=== PATIENT | male | born 1960 | race Caucasian/White ===

== ENCOUNTER → 2023-06-26 14:17 | Outpatient (REF) | payer BC, SELFPAY ==
[2023-06-26 14:54] LABS: % Basophils 0.4 % (0-2); % Immature Granulocytes 0.4 % (0-0.5); % Lymphocytes 45.7 % (20.5-51.1); % Monocytes 5.4 % (1.7-9.3); % Neutrophils 47.1 % (42.2-75.2); Absolute Basophils 0.1 10^3/uL (0-0.2); Absolute Eosinophils 0.1 10^3/uL (0-0.7); Absolute Immature Granulocytes 0.1 10^3/uL (0-0.05); Absolute Lymphocytes 5.1 10^3/uL (1.2-3.4); Absolute Monocytes 0.6 10^3/uL (0.1-0.6); Absolute Neutrophils 5.3 10^3/uL (1.4-6.5); Hematocrit 48.5 % (39.0-52.0); Hemoglobin 17.3 g/dL (13.0-18.0); Mean Corp Hgb Conc. 35.7 g/dL (33.0-37.0); Mean Corpuscular Hgb 33.1 pg (27.0-31.0); Mean Corpuscular Volume 92.7 fL (80.0-94.0); Mean Platelet Volume 11.3 fL (7.4-10.4); Nucleated Red Blood Cells % 0 % (-); Platelet Count 211 10^3/uL (130-400); Red Blood Cell Count 5.23 10^6/uL (4.70-6.10); Red Cell Dist. Width 12.4 % (11.5-14.5); White Blood Cell Count 11.2 10^3/uL (4.8-10.8)
[2023-06-26 15:07] LABS: ALT (SGPT) 31 U/L (0-50); AST (SGOT) 36 U/L (17-59); Albumin 4.5 g/dl (3.5-5.0); Alkaline Phosphatase 50 U/L (38-126); Blood Urea Nitrogen 15 mg/dl (9-20); Calcium 9.3 mg/dl (8.4-10.2); Carbon Dioxide 28 mmol/L (22-30); Chloride 102 mmol/L (98-107); Glucose 81 mg/dl (70-99); HDL Cholesterol 56 mg/dl; LDL Cholesterol, Calculated 104 mg/dl; Potassium 4.1 mmol/L (3.5-5.1); Sodium 135 mmol/L (135-145); Total Bilirubin 2.7 mg/dl (0.2-1.3); Total Cholesterol 171 mg/dl (50-199); Total Protein 7.1 g/dl (6.3-8.2); Triglyceride 56 mg/dl (10-149); Very Low Density Lipoprotein 11 mg/dl (0-30); eGFR > 60.00
[2023-06-26 15:38] LABS: TSH 0.62 uIU/ml (0.47-4.68)
== END ==
LOC: REG 14:17
PROVIDERS: ATTENDING PHYSICIAN Internal Medicine Cardiovascular Disease; FAMILY PHYSICIAN Family Medicine
DX: I25.119 Atherosclerotic heart disease of native coronary artery with unspecified angina pectoris (principal)
CPT/HCPCS: 36415; 80053; 80061; 84443; 85025

== ENCOUNTER 2023-07-04 04:39 | Inpatient (IN) | payer BC, SELFPAY ==
--- NOTE | 2023-07-04 04:10 | HPS.HSE ---
Addendum entered and electronically signed by Gilmar Portillo MD 07/04/23 14:12:
Correction:
Acute flexor tenosynovitis right 4th finger
HX similar tenosynovitis right 4th finger s/p suregry 1 yr ago in [place]
- Initiated IV Unasyn upon admission <del>Ancef</del> <del>1gm</del> <del>q8h</del>
- Analgesia PRN with Tylenol for mild pain, Oxycodone for mod - sevre pain
- f/u admission labs
- ER d/w hand Surgeon Dr ladd - consulted
Addendum entered and electronically signed by Gilmar Portillo MD 07/04/23 05:52:
Laboratory Tests
07/04/23
03:20
WBC 15.5 H
Plt Count 180
Sodium 137
Potassium 4.3
Carbon Dioxide 27
Creatinine 0.9
eGFR > 60.00
Original Note:
Family Physician
-
Family Physician: Wang Sanchez
Chief Complaint
-
Rt hand pain
History of Present Illness
62M [place] Res , dominant Rt hand, HX b/l carpel tunnel syndrome s/p CTS decompression surgery. HX Lt hand tenosynovitis pw acute onset of Rt hand pain and tenderness especially with opening of hand and extension more localized at base of the 4th
finger. Denied trauma. For last couple of months he is working on home [employer], [place].
ROS
No fever or chills
Medical History
Past Medical History
Past Medical History: Reports HTN, Hypercholesterolemia, Psychiatric (anxiety/depression ) and Other (b/l carpel tunnel syndrome )
Past Surgical History: Reports Orthopedic ( b/l carpel tunnel syndrome s/p CTS decompression surgery. Lt hand surgery )
Social History
Tobacco: Smoker
Alcohol: Occasional
Drug: Marijuana (occasionaly )
Personal:
Living: With Family
Family History
Family History: Not pertinent
Allergies / Home Medications
Allergies reflects when Allergies were last updated in [facility].
Home Medications with original date entered in [facility]
Allergy/Medication List:
No known allergy
Baby ASA 81 daily
Metoprolol succinate 50 mg daily
Rosuvastatin 10 mg qpm
Zoloft 25mg daily
Hormonal Tx ( Testosterone ? )
Review of Systems
-
Constitutional: Reports No Symptoms
EENT: Reports No Symptoms
Respiratory: Reports No Symptoms
Cardiac: Reports No Symptoms
Abdomen/GI: Reports No Symptoms
: Reports No Symptoms
Musculoskeletal: Reports See HPI
Skin: Reports No Symptoms
Neurological: Reports No Symptoms
Endocrine: Reports No Symptoms
Hematologic/Lymphatic: Reports No Symptoms
Psych: Reports No Symptoms
Physical Exam
Physical Exam
General: Well Developed, No Apparent Distress, Conversant and Other
HEENT: NormoCephalic, Anicteric and Moist mucous membranes
Respiratory: Clear; No Wheezes, Rales or Rhonchi
Cardiac: S1/S2 and Regular Rhythm; No Murmur
Breast: Deferred by me
GI: Soft, Non Tender, Non Distended and Normal Bowel Sounds
Rectal: Deferred by Provider
Genito-urinary: Deferred by me
Musculoskeletal: Other (severe tendeness to light palpation of Rt Hand at abse of the 4 th finger, painfull extension )
Skin: Warm
Neuro: AO x 3 and Nonfocal/grossly intact
Hematologic/Lymphatic: No Lymphadenopathy
Psych: Calm
Laboratory Results
-
pending admission labs
Impression/Plan
-
Data
WCC 11s a week ago per
Pending admission lab
A/P
Pending Rx reconciliation
Acute flexor tenosynovitis right 4th finger
HX similar tenosynovitis right 4th finger s/p suregry 1 yr ago in [place]
- IV Ancef 1gm q8h
- Analgesia PRN with Tylenol for mild pain, Oxycodone for mod - sevre pain
- f/u admission labs
- ER d/w hand Surgeon Dr ladd - consulted
HX HTN
HLD
CAD with stent
- cont all OP Meds
DVT Px: ambulatory
Full code
IP MS
--- NOTE | 2023-07-04 04:13 | ED.GENMED ---
History of Present Illness
General
Chief Complaint: Musculo-Skeletal Complaint
Source: patient and spouse
Exam Limitations: none
Nursing documentation reviewed up to this point in time: agreed with
History of Present Illness
History of Present Illness:
62-year-old male with past medical history as documented presents to the emergency room for evaluation of right fourth finger pain and swelling. Patient notably says that he had identical pain and swelling in the left hand last year and required
surgery for flexor tenosynovitis with Dr. Mendoza. He says that he noticed onset this evening and symptoms have been worsening throughout the night. He says pain is along the entire fourth digit on the flexor surface, finger is swollen and he says
that extension causes exquisite pain. He denies any trauma. He denies any other symptoms including fevers or chills.
Past History
Past History
ED Past Medical History: None
ED Past Surgical History: Orthopedic (CTR)
Social History
Tobacco: Non-smoker
Alcohol: Occasional
Drug: None
Personal:
Living: with family
Employment: Employed
Family History
Family History: CAD; Negative Early CAD or Sudden
Review of Systems
Review of Systems
All Other Systems: ROS reviewed and negative except as documented in HPI and ROS
Constitutional: Denies fever or chills
Respiratory: Denies trouble breathing
Cardiac: Denies chest pain
ABD/GI: Denies abdominal pain, nausea or vomiting
: Denies flank pain
Musculoskeletal: Reports other (Right hand/finger pain); Denies neck pain or back pain
Neurological: Denies headache, weakness or numbness
Phy Exam
Physical Exam
Physical Exam:
General: Awake, alert, oriented x3; no acute distress
Head: Normocephalic, atraumatic
Eyes: Conjunctiva normal, sclera anicteric
Throat: Airway intact, handling secretions
Neck: Trachea midline, supple without meningismus
Lungs: Breathing comfortably no distress
Heart: Regular rate
Neuro: No gross deficits
Skin: no rash
Extremities: On exam of patient's right hand he has some slight swelling over the left fourth digit, left fourth digit is held in flexion he has exquisite passive extension of the left fourth digit and tenderness to percussion along the flexor
tendon sheath; there is no significant erythema of the fourth digit; rest of the digits on the right hand unremarkable; exam of left hand no significant swelling or erythema; he has good pulses in all extremities including a strong right radial pulse
Scores
Heart Failure Risk
Heart Failure Risk Score: Not Applicable
Heart Score for Chest Pain Patients
STEMI patient?: Not applicable
Withdrawal Assessment of Alcohol
Withdrawal Assessment Completed?: Not applicable
Course
Orders/Labs/Results
Orders:
Orders
07/04/23 04:15
ORTHOPEDIC CONSULT Urgent
Consulting Provider: Manjit Farooq
Was physician already notified: Yes
07/04/23 04:16
Admit/Transfer Patient As Directed
Co-Sign Provider:
Level of Care: Inpatient admission
Assign to:: Medical/Surgical
Physician / Group: cookie
Diagnosis: Acute flexor tenosynovitis right 4th finger
Reason for Hospitalization: Acute flexor tenosynovitis right 4th finger
Expected length of stay greater than two midnights?: Yes
ELOS- Estimated Length of Stay in days: 3
I certify the patient meets the requirements for IP care: Yes
07/04/23 04:17
Code Status As Directed
Resuscitation Status: Full Code
MDM/Problems Addressed
Differential Diagnosis Includes:
Flexor tenosynovitis, fracture, sprain, dislocation/subluxation, cellulitis, tendinitis
MDM/Problems Addressed:
62-year-old male presents for evaluation of swelling and pain in the right fourth finger similar to prior episode of tenosynovitis in the left hand. Physical exam as above. He has multiple [place] signs at least mildly concerning for flexor
tenosynovitis. Will place an IV check lab work, x-ray of the hand. Discussed with hand surgeon will plan for IV antibiotics and admission and they will consult on patient.
Initial labs reviewed CBC shows leukocytosis to 15.6, CMP unremarkable. Discussed with hospitalist for admission.
*Radiology
Radiology exam reviewed: preliminary read by ED provider
*Pulse Oximetry
Patient hypoxic: no
*Critical Care Note
Total Time (30-74mins, 75-104mins- exclusive of procedures): Not Applicable
Data Reviewed
Review of Other/Old Records Reveals: Labs and Records
Source: patient and spouse
Patient Management
Discussion with other providers: Hospitalist (Discussed with hospitalist) and Interface Analyst (Discussed with hand surgeon)
Escalation/DeEscalation of care consider admission/obs:
Admission indicated
ED Attending Note
-
Portions of this chart may have been created with voice recognition software.� Occasional wrong word or��sound alike� substitutions may have occurred due to the inherent limitations of voice recognition software.
Discharge Plan
Departure
Patient Disposition: Admit
Date of Disposition: 07/04/23
Time of Disposition: 04:15
Admit to doctor: Cookie
Presentation/result/management discussed w/ accepting MD/DO: Hospitalist
Discharge Problem:
Tenosynovitis of finger and hand
Prescriptions:
No Action
aspirin [Aspir-Low] 81 MG tablet,delayed release (DR/EC)
81 mg PO DAILY
metoprolol succinate 50 MG tablet extended release 24 hr
50 mg PO DAILY Qty: 90 10RF
sertraline 50 mg Tablet
50 mg PO DAILY
rosuvastatin 10 MG tablet
20 mg PO QPM
amoxicillin-pot clavulanate 875-125 mg Tablet
1 tab PO BID Qty: 28 0RF
doxycycline hyclate 100 mg Capsule
100 mg PO BID Qty: 28 0RF
Referrals:
Wang Sanchez MD [Family Provider] -
--- NOTE | 2023-07-04 04:15 | DOWNTIME ---
There was a [employer] Downtime on 07/04/2023 from 0111 to 07/04/2023 at 0405. Downtime documentation of patient's care, including medication administrations, has been reconciled in the electronic record per guidelines. Refer to the
patient's paper chart under the miscellaneous tab to see printed paper medication records and downtime forms.
[2023-07-04] MEDS: VANCOCIN 300 ML IV (04:32)
[2023-07-04] MEDS: VANCOCIN 300 MG IV (04:32)
[2023-07-04 05:03] LABS: % Basophils 0.5 % (0-2); % Eosinophils 1.7 % (0-6); % Immature Granulocytes 0.4 % (0-0.5); % Lymphocytes 39.6 % (20.5-51.1); % Neutrophils 51.8 % (42.2-75.2); ALT (SGPT) 24 U/L (0-50); AST (SGOT) 29 U/L (17-59); Absolute Basophils 0.1 10^3/uL (0-0.2); Absolute Eosinophils 0.3 10^3/uL (0-0.7); Absolute Immature Granulocytes 0.1 10^3/uL (0-0.05); Absolute Lymphocytes 6.1 10^3/uL (1.2-3.4); Absolute Monocytes 0.9 10^3/uL (0.1-0.6); Albumin 3.7 g/dl (3.5-5.0); Alkaline Phosphatase 42 U/L (38-126); Blood Urea Nitrogen 21 mg/dl (9-20); Calcium 9.4 mg/dl (8.4-10.2); Carbon Dioxide 27 mmol/L (22-30); Chloride 105 mmol/L (98-107); Glucose 98 mg/dl (70-99); Hematocrit 46.6 % (39.0-52.0); Hemoglobin 16.6 g/dL (13.0-18.0); Mean Corp Hgb Conc. 35.6 g/dL (33.0-37.0); Mean Corpuscular Hgb 33.1 pg (27.0-31.0); Mean Platelet Volume 11.3 fL (7.4-10.4); Nucleated Red Blood Cells % 0 % (-); Platelet Count 180 10^3/uL (130-400); Potassium 4.3 mmol/L (3.5-5.1); Red Blood Cell Count 5.01 10^6/uL (4.70-6.10); Red Cell Dist. Width 12.7 % (11.5-14.5); Sodium 137 mmol/L (135-145); Total Bilirubin 1.3 mg/dl (0.2-1.3); Total Protein 5.9 g/dl (6.3-8.2); White Blood Cell Count 15.5 10^3/uL (4.8-10.8); eGFR > 60.00
[2023-07-04 05:04] LABS: APTT 30.7 Sec (23.4-35.0); INR 1.02; PT 13.3 Sec (11.4-14.6)
[2023-07-04 05:54] VITALS: BP 157/82
[2023-07-04 05:55] VITALS: BMI 27.2
[2023-07-04 06:35] LABS: Hemoglobin 15.6 g/dL (13.0-18.0); Mean Corp Hgb Conc. 35.5 g/dL (33.0-37.0); Mean Corpuscular Hgb 32.9 pg (27.0-31.0); Mean Corpuscular Volume 92.8 fL (80.0-94.0); Mean Platelet Volume 11.1 fL (7.4-10.4); Platelet Count 174 10^3/uL (130-400); Red Blood Cell Count 4.74 10^6/uL (4.70-6.10); Red Cell Dist. Width 12.6 % (11.5-14.5); White Blood Cell Count 13.7 10^3/uL (4.8-10.8)
[2023-07-04 07:03] LABS: ALT (SGPT) 25 U/L (0-50); AST (SGOT) 29 U/L (17-59); Albumin 3.6 g/dl (3.5-5.0); Alkaline Phosphatase 46 U/L (38-126); Blood Urea Nitrogen 18 mg/dl (9-20); Calcium 8.8 mg/dl (8.4-10.2); Carbon Dioxide 24 mmol/L (22-30); Chloride 108 mmol/L (98-107); Estimated Creatinine Clearance 91 ml/min; Glucose 83 mg/dl (70-99); Potassium 4.4 mmol/L (3.5-5.1); Sodium 135 mmol/L (135-145); Total Bilirubin 1.5 mg/dl (0.2-1.3); Total Protein 5.8 g/dl (6.3-8.2); eGFR > 60.00
[2023-07-04 07:48] LABS: Erythrocyte Sed Rate 2 mm/hour (0-20)
[2023-07-04 08:07] VITALS: BP 122/65
--- NOTE | 2023-07-04 08:11 | CON.ORTHO ---
Consultation
-
Date/Time Consultation Requested: 07/04/2023; time unknown
Date/Time Consultation Performed: 07/04/2023; 0730
Requesting Provider: unknown
Performing Provider: Aby Swenson PA-C/ Dr. Blaine Mendoza
Reason for Consultation: Right ring finger pain and swelling
Consultation - Orthopedics
History
Shaquille is a 62 year old male with PMH of rheumatoid arthritis, CAD s/p stent placement, hypercholesterolemia and depression seen today for evaluation of right ring finger pain and swelling onset last night. He reports spontaneous onset of pain and
swelling in his right ring finger. He denies any injury or inciting event. He does have a history of flexor tenosynovitis of his left ring finger which was treated with surgery by Dr. Mendoza. He reports his symptoms today feel exactly how they felt
on his left side. He endorses pain generally throughout the finger, but denies pain elsewhere in his hand or wrist. He is unable to actively extend the finger. He denies any other symptoms, and is otherwise feeling well. He denies fever or chills.
Allergies / Home Medications
Allergy/AdvReac Type Severity Reaction Status Date / Time
No Known Allergies Allergy Verified 04/14/19 18:58
Medication Instructions Recorded
aspirin 81 mg tablet,delayed 81 mg PO DAILY 04/14/19
release (Aspir-Low)
metoprolol succinate 50 mg 50 mg PO DAILY #90 tabs 04/16/19
tablet,extended release 24 hr
rosuvastatin 10 mg tablet 20 mg PO QPM 03/20/22
sertraline 50 mg tablet 50 mg PO DAILY 03/20/22
dextroamphetamine-amphetamine 5 mg 1 mg PO DAILY 07/04/23
tablet (Adderall)
Vital Signs / Lab Results
Temp Pulse Resp BP Pulse Ox
97.7 F 59 16 122/65 100
07/04/23 08:07 07/04/23 08:07 07/04/23 08:07 07/04/23 08:07 07/04/23 08:07
07/04/23 06:10
07/04/23 06:10
ESR/CRP WNL.
XR of the right hand taken today and independently interpreted by me reveal no obvious osseous abnormalities. There is soft tissue swelling involving the ring finger.
Directed exam of the right upper extremity reveals generalized edema and hue of erythema about the right ring finger. No wounds or lesions noted. Tenderness to palpation generally about the palmar surface of the finger. No tenderness elsewhere in
the hand or wrist. Patient able to make composite fist, but unable to actively extend finger. Pain elicited with passive extension of the finger. Sensation intact to light touch. Capillary refill <2 seconds.
VSS, afebrile.
Assessment / Plan
Right ring finger flexor tenosynovitis
--Shaquille's symptoms are consistent with right ring finger extensor tenosynovitis. Patient also seen and evaluated by Dr. Mendoza. No surgical intervention is required for now. We will plan to make him NPO after midnight in the event that his symptoms
change or worsen overnight. If this is the case, may proceed with OR tomorrow under the direction of Dr. Mendoza. Otherwise, plan to continue with symptomatic management and follow up on an outpatient basis.
--Patient may use the hand to tolerance. May work on gentle ROM of the wrist and hand.
--Continue pain management per primary. Consider Toradol as primary discretion.
--Orthopedics will continue to follow along. Please reach out with any additional orthopedic questions or concerns.
[2023-07-04] MEDS: UNASYN IV ×4 (08:12→23:09)
[2023-07-04] MEDS: ZOLOFT 50 MG PO (08:13)
[2023-07-04] MEDS: TOPROL XL 50 MG PO (08:25)
[2023-07-04] MEDS: ASPIR LOW (ENTERIC COATED) 81 MG PO (08:25)
--- NOTE | 2023-07-04 10:13 | W.PN.HOSP.TC ---
Today's Communication/Plan
-
Continue antibiotics
Assessment / Plan
Assessment / Plan
Gen-AAOx3, NAD
HEENT-NC, AT, anicteric, clear oral mm
Neck-supple
CV-reg, no M, +S1/S2
Lungs-clear B/L
Abd-soft, NT, ND
Ext-no edema
Musculoskeletal-no cyanosis, clubbing, mild erythema and edema of the right fourth finger with mildly limited range of motion
Skin-warm and dry
Neuro-grossly non-focal
Psych-calm, cooperative
Right fourth finger tenosynovitis -continue empiric antibiotics. Source of infection unclear. No obvious triggers. Had a similar infection of the left fourth finger in 2021 treated with antibiotics, incision and drainage. Orthopedics input
noted. WBCs trending down. Afebrile. Blood cultures pending.
History of rheumatoid arthritis -in remission. Not currently on treatment.
Essential hypertension -stable.
Hyperlipidemia -continue Crestor.
Tobacco dependence
full code
Anticipated Discharge: > 48 hours
Subjective/Interval History
-
Date of Service: July 04, 2023
Patient seen and examined. Complaining of pain and stiffness of the right fourth finger.
Objective Data
-
Labs:
Laboratory Results
07/04/23 07/04/23
03:20 06:10
WBC 15.5 H 13.7 H
Hgb 16.6 15.6
Hct 46.6 44.0
Plt Count 180 174
PT 13.3
INR 1.02
APTT 30.7
Sodium 137 135
Potassium 4.3 4.4
Chloride 105 108 H
Carbon Dioxide 27 24
BUN 21 H 18
Creatinine 0.9 0.8
Glucose 98 83
Calcium 9.4 8.8
Total Bilirubin 1.3 1.5 H
AST 29 29
ALT 24 25
Alkaline Phosphatase 42 46
Vital Signs:
Vital Signs
Temp Pulse Resp BP Pulse Ox
97.7 F 59 16 122/65 100
07/04/23 08:07 07/04/23 08:07 07/04/23 08:07 07/04/23 08:07 07/04/23 08:07
Review of Systems
-
History Source: Patient
All other systems: Reviewed and negative
--- NOTE | 2023-07-04 14:01 | CM ---
Initial assessment completed with patient who lives with his in a 2 story townhouse with B/B on 2nd floor and 1/2 bath on 1st. He also has a home in [place]. 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 No DME, O2 or services in the
home. is POA, support system is , [id number], nephew and friends. Pharmacy is [facility] on [address] in [place] and PCP is Dr. Wang Sanchez in [place]. Anticipate home with no needs.
--- NOTE | 2023-07-04 15:04 | W.PN.UPDATE ---
Update Note
Progress Note Update
Patient seen and evaluated again this afternoon by orthopedic surgery. I also spoke to his and discussed our plan at this time. We will continue with the current treatment plan as outlined by my colleague this morning. No surgical
intervention is required for now. We will plan to make him NPO pMN in the event that his symptoms change or worsen overnight.�We will continue to monitor and patient will be reevaluated on rounds in the morning. All questions were answered.
[2023-07-04 15:34] VITALS: BP 135/81
[2023-07-04] MEDS: CRESTOR 20 MG PO (17:08)
[2023-07-04] MEDS: TYLENOL 650 MG PO (20:52)
[2023-07-04] MEDS: ROXICODONE 5 MG PO (22:12)
[2023-07-05 00:01] VITALS: BP 139/82
[2023-07-05] MEDS: TORADOL 15 MG IV (00:19)
--- NOTE | 2023-07-05 00:29 | PTCARENOTE ---
Pt continues to c/o Rt hand pain. +1 edema in the right hand. Pt as advice to put ice and elevate. Toradol IV order. Capillary refill < 2. Will cont w/ tx plan
[2023-07-05 05:11] LABS: Hematocrit 41.9 % (39.0-52.0); Hemoglobin 14.8 g/dL (13.0-18.0); Mean Corp Hgb Conc. 35.3 g/dL (33.0-37.0); Mean Corpuscular Hgb 32.1 pg (27.0-31.0); Mean Corpuscular Volume 90.9 fL (80.0-94.0); Mean Platelet Volume 11.1 fL (7.4-10.4); Platelet Count 164 10^3/uL (130-400); Red Blood Cell Count 4.61 10^6/uL (4.70-6.10); Red Cell Dist. Width 12.7 % (11.5-14.5); White Blood Cell Count 10.5 10^3/uL (4.8-10.8)
[2023-07-05] MEDS: UNASYN IV ×2 (05:17→11:59)
[2023-07-05 07:09] LABS: Absolute Neutrophils -Man Diff 4.5 10^3/uL (1.4-6.5); Atypical Lymphocytes 8 %; Band Neutrophils 0 % (0-3); Eosinophils 1 % (0-6); Lymphocytes 41 % (20-51); Metamyelocytes 1 % (-); Monocytes 6 % (2-9); Platelets Checked Yes; Segmented Neutrophils 43 % (42-75)
[2023-07-05 07:10] LABS: Normal RBC Morphology Yes; Total Cells Counted 100
[2023-07-05 07:13] VITALS: BP 125/74
[2023-07-05] MEDS: ASPIR LOW (ENTERIC COATED) 81 MG PO (07:44)
[2023-07-05] MEDS: ZOLOFT 50 MG PO (07:44)
[2023-07-05] MEDS: TOPROL XL 50 MG PO (08:58)
--- NOTE | 2023-07-05 11:23 | W.PN.UPDATE ---
Update Note
Progress Note Update
Patient was seen and examined this morning and discussed with Dr. Mendoza. Is clinically improved demonstrates near full range of motion with no significant pain with passive extension and with very mild tenderness over the flexor tendon sheath.
More likely inflammatory pathology than infectious.
-Patient is not recommended for operative mention at this time. Recommend continue with anti-inflammatories and outpatient course of antibiotics. Will have a close outpatient follow-up in approximately 1 week or if he is traveling outside the
local area which she mentioned he will contact our office for status update.
--- NOTE | 2023-07-05 12:12 | W.PN.HOSP.TC ---
Addendum entered and electronically signed by Keenan Hook DO 07/05/23 12:45:
I was able to get a hold of the patient and I informed him to follow-up closely with rheumatology as I believe that his RA needs to be addressed as I believe it is the etiology of his recurrent tenosynovitis. He is currently not on treatment for
RA. Patient understands.
Addendum entered and electronically signed by Keenan Hook DO 07/05/23 12:21:
Suspect recurrent tenosynovitis due to rheumatoid arthritis. Recommend outpatient follow-up with rheumatology.
Original Note:
Today's Communication/Plan
-
discharge
Assessment / Plan
Assessment / Plan
Gen-AAOx3, NAD
HEENT-NC, AT, anicteric, clear oral mm
Neck-supple
CV-reg, no M, +S1/S2
Lungs-clear B/L
Abd-soft, NT, ND
Ext-no edema
Musculoskeletal-no cyanosis, clubbing, mild erythema and edema of the right fourth finger with mildly limited range of motion
Skin-warm and dry
Neuro-grossly non-focal
Psych-calm, cooperative
Right fourth finger tenosynovitis -improving. White blood cell count normalized. Afebrile. Had a similar infection of the left fourth finger in 2021 treated with antibiotics, incision and drainage. Blood cultures negative so far. MRSA screen
pending. Appreciate orthopedics input. They suspect it is more inflammatory than infectious in nature. Can discharge on Motrin and Augmentin.
History of rheumatoid arthritis -in remission. Not currently on treatment.
Chronic diarrhea -patient states it started a few months ago. Is due to follow-up with GI as an outpatient. May have IBS. Last colonoscopy was 5 years ago. If diarrhea worsens can send off sample for C. difficile infection. Discussed with
nursing.
Essential hypertension -stable.
Hyperlipidemia -continue Crestor.
Tobacco dependence
full code
Dispo -discharge this afternoon. Outpatient follow-up.
32 min spent in discharge process.
Anticipated Discharge: Today
Subjective/Interval History
-
Date of Service: July 05, 2023
Patient seen and examined. Feels that his hand is improving overall. No complaints.
Objective Data
-
Labs:
Laboratory Results
07/05/23
04:54
WBC 10.5
Hgb 14.8
Hct 41.9
Plt Count 164
Vital Signs:
Vital Signs
Temp Pulse Resp BP Pulse Ox
98.1 F 57 17 125/74 98
07/05/23 07:13 07/05/23 08:58 07/05/23 07:13 07/05/23 08:58 07/05/23 07:13
I&O
07/04/23 07/05/23 07/06/23
06:59 06:59 06:59
Intake Total 1800 / 1800
Balance 1800 / 1800
Review of Systems
-
History Source: Patient
All other systems: Reviewed and negative
--- NOTE | 2023-07-05 12:26 | W.DS.TRANS ---
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
-
Discharge Instructions:
Discharge Diagnosis/Procedures Right hand tenosynovitis
Diet Low Fat,Low Cholesterol
Activity As tolerated
Driving Restrictions As prior to admission
Bathing Restrictions None
Instructions:
Stand-Alone Forms:
Changes to Home Medications: No
Discharge Medications:
DC Medications w/original date entered in [facility]
aspirin 81 mg tablet,delayed release (Aspir-Low) 81 mg PO DAILY 04/14/19
metoprolol succinate 50 mg tablet,extended release 24 hr 50 mg PO DAILY #90 tabs 04/16/19
rosuvastatin 10 mg tablet 20 mg PO QPM 03/20/22
sertraline 50 mg tablet 50 mg PO DAILY 03/20/22
dextroamphetamine-amphetamine 5 mg tablet (Adderall) 1 mg PO DAILY 07/04/23
amoxicillin 875 mg-potassium clavulanate 125 mg tablet 1 tab PO BID #14 tabs 07/05/23
ibuprofen 800 mg tablet 800 mg PO Q6H PRN Pain #20 tabs 07/05/23
Home Medication Changes
Pending Results: No
--- NOTE | 2023-07-05 13:28 | CM ---
Patient has been medically cleared for discharge to home with no additional skilled services. Patient has arranged for family to transport home.
== END 2023-07-05 14:23 | disposition home or self-care (01) | DRG 558 ==
LOC: 2 SOUTH 04:39
PROVIDERS: ADMITTING PHYSICIAN Internal Medicine; ATTENDING PHYSICIAN Hospitalist; EMERGENCY PHYSICIAN Emergency Medicine; FAMILY PHYSICIAN Family Medicine; OTHER PHYSICIAN Orthopaedic Surgery Hand Surgery
DX: M65.9 Synovitis and tenosynovitis, unspecified (principal); F17.200 Nicotine dependence, unspecified, uncomplicated; Z79.82 Long term (current) use of aspirin; I10 Essential (primary) hypertension; E78.5 Hyperlipidemia, unspecified; M06.9 Rheumatoid arthritis, unspecified; K52.9 Noninfective gastroenteritis and colitis, unspecified
CPT/HCPCS: 73130; 80053; 85025; 85027; 85610; 85652; 85730; 86140; 86850; 86900; 86901; 87040; 87070; 87324; 87449; 96365; 99284; 99406

== ENCOUNTER → 2024-05-23 12:13 | Outpatient (REF) | payer BC, SELFPAY ==
[2024-05-23 13:26] LABS: Hematocrit 49.8 % (39.0-52.0); Hemoglobin 17.4 g/dL (13.0-18.0); Mean Corp Hgb Conc. 34.9 g/dL (33.0-37.0); Mean Corpuscular Hgb 32.5 pg (27.0-31.0); Mean Corpuscular Volume 93.1 fL (80.0-94.0); Mean Platelet Volume 10.7 fL (7.4-10.4); Platelet Count 207 10^3/uL (130-400); Red Blood Cell Count 5.35 10^6/uL (4.70-6.10); White Blood Cell Count 11.3 10^3/uL (4.8-10.8)
[2024-05-23 13:46] LABS: ALT (SGPT) 30 U/L (0-50); AST (SGOT) 31 U/L (17-59); Albumin 4.7 g/dl (3.5-5.0); Alkaline Phosphatase 58 U/L (38-126); Blood Urea Nitrogen 14 mg/dl (9-20); Calcium 9.7 mg/dl (8.4-10.2); Carbon Dioxide 28 mmol/L (22-30); Chloride 100 mmol/L (98-107); Glucose 98 mg/dl (70-99); Potassium 4.6 mmol/L (3.5-5.1); Sodium 137 mmol/L (135-145); Total Bilirubin 2.4 mg/dl (0.2-1.3); Total Protein 7.3 g/dl (6.3-8.2); eGFR > 60.00
[2024-05-23 14:00] LABS: Free T3 3.68 pg/ml (2.77-5.27); Free T4 1.03 ng/dl (0.78-2.19); Vitamin D, 25-OH*** 53.8 ng/mL (30-80)
[2024-05-23 14:13] LABS: TSH 1.24 uIU/ml (0.47-4.68)
[2024-05-23 15:24] LABS: Absolute Neutrophils -Man Diff 2.9 10^3/uL (1.4-6.5); Atypical Lymphocytes 35 %; Band Neutrophils 0 % (0-3); Eosinophils 4 % (0-6); Lymphocytes 34 % (20-51); Monocytes 1 % (2-9); Normal RBC Morphology Yes; Platelets Checked Yes; Segmented Neutrophils 26 % (42-75)
[2024-05-23 15:25] LABS: Total Cells Counted 100
[2024-05-25 18:49] LABS: % Free Testosterone 1.7 % (1.6-2.9); Free Testosterone 90 pg/mL (47-244); PSA Total 1.8 ng/mL (0.0-4.0); Sex Hormone Binding Globulin 43 nmol/L (19-76); Total Testosterone 548 ng/dL (300-720)
[2024-05-25 18:50] LABS: DHEA Sulfate 213 ug/dL (52-295)
[2024-05-26 02:55] LABS: IGF-1 Z Score Calculation 1.3; Insulin-like Growth Factor I 180 ng/mL (43-225)
== END ==
LOC: REG 12:13
PROVIDERS: ATTENDING PHYSICIAN Family Medicine Sports Medicine; FAMILY PHYSICIAN Family Medicine
DX: E29.1 Testicular hypofunction (principal); R53.83 Other fatigue; E55.9 Vitamin D deficiency, unspecified; Z12.5 Encounter for screening for malignant neoplasm of prostate
CPT/HCPCS: 36415; 80053; 82306; 82627; 84153; 84154; 84270; 84305; 84402; 84403; 84439; 84443; 84481; 85025

== ENCOUNTER → 2025-04-28 07:11 | Outpatient (REF) | payer MEDICARE, SELFPAY | LOC: RCS 07:11 | PROVIDERS: ATTENDING PHYSICIAN Internal Medicine Cardiovascular Disease; FAMILY PHYSICIAN Family Medicine | DX: I25.10 Atherosclerotic heart disease of native coronary artery without angina pectoris (principal); R00.2 Palpitations | CPT/HCPCS: 93306 ==